=== PATIENT | male | born 1950 | race Caucasian/White ===

== ENCOUNTER → 2017-01-30 | Outpatient (CLI) | payer MEDICARE ==
[~2017-01-30] MED LIST: AMLO2.5T PO; ENAL2.5T PO
[2017-01-30 10:37] LABS: BLOOD UREA NITROGEN 19 mg/dL (7-18)
[2017-01-30 10:40] LABS: ASPARTATE AMINO TRANSFERASE 35 U/L (15-37)
== END | disposition home or self-care (01) ==
LOC: STAR 09:11
PROVIDERS: ATTEND Orthopaedic Surgery
DX: Z01.812 Encounter for preprocedural laboratory examination (principal); M17.12 Unilateral primary osteoarthritis, left knee
CPT/HCPCS: 36415; 80053; 81003; 85025; 87081

== ENCOUNTER 2017-02-12 09:15 | Inpatient (IN) | payer MEDICARE ==
[~2017-02-12] VITALS: Ht 177.8 cm; Wt 119.3 kg
[~2017-02-12 09:15] MED LIST changes: +EPINEPHRINE 1 MG/ML, 1ML ONE; +KETOROLAC 60 MG/2 ML ONE; +NEOSPORIN OINT, 15GM ONE; +ROPIvacaine/PF 0.2%, 20 ML ONE; +SODIUM CHLORIDE 0.9% 50 ML ONE; +TRANEXAMIC ACID 100 MG/ML, 10ML ONE; +morphine SULFATE/PF 1 MG/ML, 10ML ONE
[2017-02-12] MEDS ORDERED: LACTATED RINGERS 1,000 ML IV SCH (09:59)
[2017-02-12 10:00] VITALS: BP 127/87
[2017-02-12] MEDS ORDERED: hydrALAzine 20 MG/ML, 1ML IV PRN (10:00)
[2017-02-12] MEDS ORDERED: ONDANSETRON 2MG/ML, 2ML IVPush PRN ×2 (10:00→15:00)
[2017-02-12] MEDS ORDERED: OXYcodone 5 MG/5 ML ORAL.SOL UDC PO PRN ×2 (10:00→15:00)
[2017-02-12] MEDS ORDERED: LABETALOL 5MG/ML, 20ML IV PRN (10:00)
[2017-02-12] MEDS ORDERED: VANCOMYCIN PER PHARMACY MC STA (10:00)
[2017-02-12] MEDS ORDERED: FENTANYL PF 100 MCG/2ML IV PRN (10:00)
[2017-02-12] MEDS ORDERED: HYDROmorphone 1 MG/ML, 1ML ONE ×2 (10:00→13:00)
[2017-02-12] MEDS ORDERED: ALBUTEROL SULFATE 2.5 MG/3 ML NPPB PRN (10:00)
[2017-02-12] MEDS ORDERED: LIDOCAINE 1%, 2ML SQ PRN (10:00)
[2017-02-12] MEDS ORDERED: METOPROLOL 1 MG/ML, 5ML IV PRN (10:00)
[2017-02-12] MEDS ORDERED: FENTANYL PF 100 MCG/2ML ONE (10:00)
[2017-02-12] MEDS ORDERED: EPHEDRINE 50 MG/ML, 1ML IVPush PRN (10:00)
[2017-02-12] MEDS ORDERED: ACETAMINOPHEN 325 MG TABLET PO PRN ×2 (10:00→15:00)
[2017-02-12] MEDS ORDERED: MIDAZOLAM 1 MG/ML, 2ML ONE (10:01)
[2017-02-12] MEDS ORDERED: OXYC20TA42 PO (10:07)
[2017-02-12] MEDS ORDERED: CELE400C PO (10:07)
[2017-02-12] MEDS ORDERED: VANCOMYCIN 2,100 MG in SODIUM CHLORIDE 0.9% 500 ML IV ONE (10:30)
[2017-02-12] MEDS ORDERED: ACETAMINOPHEN 650 MG/20.3 ML UDC ONE (13:00)
[2017-02-12] MEDS ORDERED: ACETAMINOPHEN 325 MG/10.15 ML UDC ONE (13:00)
[2017-02-12] MEDS ORDERED: OXYcodone 5 MG/5 ML ORAL.SOL UDC ONE (13:01)
[2017-02-12] MEDS: HYDROmorphone 1 MG/ML, 1ML IV PRN ×2 (13:22→13:32)
[2017-02-12] MEDS ORDERED: MAGNESIUM HYDROXIDE 8%, 30ML UDC PO PRN (15:00)
[2017-02-12] MEDS ORDERED: morphine SULFATE 10 MG/ML, 1ML IV PRN (15:00)
[2017-02-12] MEDS ORDERED: SENNA/DOCUSATE TABLET PO PRN (15:00)
[2017-02-12] MEDS ORDERED: HYDROcodone/APAP 5/325 TABLET PO PRN (15:00)
[2017-02-12] MEDS ORDERED: DIAZEPAM 5 MG TABLET PO PRN (15:00)
[2017-02-12] MEDS ORDERED: ALUMINUM/MAG/SIMETHICONE 30 ML UDC PO PRN (15:00)
[2017-02-12] MEDS ORDERED: BISACODYL 10 MG SUPP PR PRN (15:00)
[2017-02-12] MEDS ORDERED: NEOSTIGMINE 1 MG/ML, 10ML ONE (15:12)
[2017-02-12] MEDS ORDERED: ONDANSETRON 2MG/ML, 2ML ONE (15:12)
[2017-02-12] MEDS ORDERED: ROCURONIUM 10 MG/ML ONE (15:12)
[2017-02-12] MEDS ORDERED: CEFAZOLIN 1,000 MG ONE (15:12)
[2017-02-12] MEDS ORDERED: PROPOFOL 10 MG/ML, 20ML ONE (15:12)
[2017-02-12] MEDS ORDERED: GLYCOPYRROLATE 0.2MG/1ML ONE (15:12)
[2017-02-12] MEDS: OXYcodone IR 5MG TABLET PO SCH ×2 (16:59→23:36)
[2017-02-12] MEDS: D5%-0.45% NACL+KCL 10MEQ 1,000 ML IV SCH (17:00)
[2017-02-12] MEDS: CEFAZOLIN PMX 1GM/50ML 50 ML IVPB SCH (18:44)
[2017-02-12 20:00] VITALS: BP 118/78
[2017-02-12] MEDS: DOCUSATE 100 MG CAPSULE PO SCH (20:24)
[2017-02-13 01:36] VITALS: BP 127/72
[2017-02-13] MEDS: CEFAZOLIN PMX 1GM/50ML 50 ML IVPB SCH (03:23)
[2017-02-13] MEDS: OXYcodone IR 5MG TABLET PO SCH ×4 (05:51→19:24)
[2017-02-13] MEDS: ENOXAPARIN 30 MG/0.3 ML SQ SCH ×2 (05:51→17:32)
[2017-02-13 07:16] VITALS: BP 119/71
[2017-02-13] MEDS: ENALAPRIL 2.5MG TABLET PO SCH (08:27)
[2017-02-13] MEDS: DOCUSATE 100 MG CAPSULE PO SCH ×2 (08:27→21:31)
[2017-02-13] MEDS: MULTIVITAMINS/MINERALS TABLET PO SCH (08:27)
[2017-02-13] MEDS: AMLODIPINE 2.5 MG TABLET PO SCH (08:27)
[2017-02-13] MEDS: D5%-0.45% NACL+KCL 10MEQ 1,000 ML IV SCH (11:00)
[2017-02-13 15:46] VITALS: BP 104/59
[2017-02-13 20:17] VITALS: BP 105/59
[2017-02-14] MEDS: OXYcodone IR 5MG TABLET PO SCH ×4 (01:40→13:44)
[2017-02-14 03:53] VITALS: BP 109/51
[2017-02-14] MEDS: ENOXAPARIN 30 MG/0.3 ML SQ SCH (05:39)
[2017-02-14 06:30] VITALS: BP 126/76
[2017-02-14 06:40] VITALS: BP 124/78
[2017-02-14] MEDS: D5%-0.45% NACL+KCL 10MEQ 1,000 ML IV SCH (07:00)
[2017-02-14] MEDS: MULTIVITAMINS/MINERALS TABLET PO SCH (09:03)
[2017-02-14] MEDS: ENALAPRIL 2.5MG TABLET PO SCH (09:03)
[2017-02-14] MEDS: AMLODIPINE 2.5 MG TABLET PO SCH (09:03)
[2017-02-14] MEDS: DOCUSATE 100 MG CAPSULE PO SCH (09:04)
[2017-02-14] MEDS ORDERED: OXYC-229 PO (13:23)
[2017-02-14] MEDS ORDERED: DIAZ10TA4 PO (13:24)
[2017-02-14] MEDS ORDERED: ASPI-650 PO (13:25)
== END 2017-02-14 13:54 | disposition home or self-care (01) | DRG 470 ==
LOC: ORIP 09:41 → 4NOR 14:19
PROVIDERS: ADMIT Orthopaedic Surgery; ATTEND Orthopaedic Surgery
PROC: 0SRD0J9 Replacement of Left Knee Joint with Synthetic Substitute, Cemented, Open Approach (ICD-10-PCS; principal; 2017-02-12 12:30)
DX: M17.12 Unilateral primary osteoarthritis, left knee (principal); Z68.42 Body mass index [BMI] 45.0-49.9, adult; F17.200 Nicotine dependence, unspecified, uncomplicated; Z82.61 Family history of arthritis; Z96.652 Presence of left artificial knee joint
CPT/HCPCS: 94640; C1713; J0171; J0690; J1170; J1650; J1885; J2250; J2274; J2405; J2704; J2710; J2795; J3010; J3370; J3490; J7613; C1776; J7040; J7120